=== PATIENT | female | born 2000 | race Caucasian/White ===

== ENCOUNTER 2021-06-26 06:04 | Inpatient (IN) | payer OTHER, SELFPAY ==
[2021-06-26] VITALS (113 sets, daily range): BP systolic 54–136; BP diastolic 22–88; PULSE 53–107; RESP 16; TEMP 36.2–37.1; O2SAT 93–100; BMI 45.1
--- NOTE | 2021-06-26 06:48 | LDADM ---
This patient, Karen Saravia, was admitted to Labor/Delivery/Recovery 107 on 06/26/21 at 06:04. Plans for labor, pain management and were discussed with patient. Patient/family oriented to hospital policies and general routines including ID bracelet, bed and alarms, visiting hours, pain management, procedures, bathroom and other care routines, personal items, smoking policy, room service/diet and guest tray routines, infant security routines, and visiting hours. Patient/Family are encouraged to report perceived risks to care and to ask questions if they do not understand what they are told or what they should do. See OBIX for further documentation.
[2021-06-26] MEDS: OXYTOCIN 30 UNITS/NS 500 ML 30 UNITS/500 ML BAG IV CONT (07:03)
[2021-06-26] MEDS: LACTATED RINGERS 1,000 ML 125 ML IV CONT ×3 (07:04→13:10)
[2021-06-26 07:18] LABS: Basophils Percent Auto 0.4 % (0.2-1.2); Eosinophils Absolute Auto 0.1 K/mm3 (0-0.3); Hemoglobin 12.3 g/dL (12.0-15.0); Immature Granulocyte Absolute 0.07 K/mm3 (0.00-0.031); Immature Granulocyte Percent A 0.7 % (0-0.5); Lymphocytes Absolute Auto 2.42 K/mm3 (0.9-3.2); Lymphocytes Percent Auto 23.6 % (18.3-44.2); Mean Corpuscular HGB Conc 34.2 g/dl (32-36); Mean Corpuscular Hemoglobin 29.7 pg (26-34); Mean Platelet Volume 11.2 fl (7.4-10.4); Monocytes Absolute Auto 0.8 K/mm3 (0.1-0.6); Monocytes Percent Auto 7.6 % (2.6-8.5); Neutrophils Absolute Auto 6.8 K/mm3 (1.3-6.7); Neutrophils Percent Auto 66.7 % (45.5-73.1); Platelet Count Result 281 k/mm3 (150-375); Red Blood Count 4.14 M/mm3 (4.2-5.4); Red Cell Distribution Width 12.5 % (11.5-14.5); White Blood Count 10.3 K/mm3 (4.5-10.0)
--- NOTE | 2021-06-26 07:51 | PM.IMHP ---
H&P: HPI History of Present Illness Date/Time: 06/26/21 07:51 Chief Complaint: induction of labor Narrative: Karen is a 21yo at 39.0 for eIOL. complicated by late care, obesity. Had IUGR last , this baby low normal growth. Review of Systems Review of Systems: All systems reviewed & are unremarkable except as noted in HPI and below PMFSH Social History Social History Smoking status: Never smoker Substance use: never Spiritual care concerns: No Meds Home Medications and Allergies Home Medications Medication Instructions Recorded Confirmed Type prenat.vits,imani,uuz-jveo-pecxn 1 tablet PO DAILY 06/26/21 06/26/21 History [ Vitamin] Allergies Allergy/AdvReac Type Severity Reaction Status Date / Time No Known Allergies Allergy Verified 06/26/21 06:30 Vital Signs Vital Signs - 24 hr 06/26/21 07:00 06/26/21 07:13 06/26/21 07:31 Temperature 97.7 F Pulse Rate 94 82 Blood Pressure 102/68 115/80 Exam Const: General: no acute distress Resp: Effort & Inspection: normal respiratory effort Auscultation: clear to auscultation bilaterally Cardio: Rate: regular rate Rhythm: regular rhythm GI: GI Palp: Yes Soft to palpation Extrem: General: normal to inspection H&P: Results Labs Labs: Short CBC 06/26/21 Range/Units 06:47 WBC 10.3 H (4.5-10.0) K/mm3 Hgb 12.3 (12.0-15.0) g/dL Hct 36.0 L (37.0-47.0) % Plt Count 281 (150-375) k/mm3 Assessment and Plan Additional Plan Here for induction of labor- pitocin AROM clear /-3 GBS neg FHT category 1
[2021-06-26] MEDS: fentaNYL CITRATE INJ (*CRX) 100 MCG/2 ML VIAL IV PUSH (09:57)
--- NOTE | 2021-06-26 09:58 | P.PNAN_ITS ---
Anes - Eval Pre Procedure Procedure: labor epidural Date/Time: 06/26/21 09:58 Surgeon: mateo Preop Diagnosis: pain during labor Pre Op Diagnosis: IOL Patient Data Age: 21 Gender: F Height: 1.57 m Weight: 112 kg Last Vital Signs Temp 37.1 C 06/26/21 08:39 Pulse 81 06/26/21 09:32 BP 115/78 06/26/21 09:32 Pulse Ox 98 06/26/21 09:55 Allergies Allergy/AdvReac Type Severity Reaction Status Date / Time No Known Allergies Allergy Verified 06/26/21 06:30 Home Medications Medication Instructions Recorded Confirmed Type prenat.vits,imani,vcr-stbg-ggkdu 1 tablet PO DAILY 06/26/21 06/26/21 History [ Vitamin] Laboratory Tests 06/26/21 06/26/21 06/26/21 06:47 06:47 06:47 WBC 10.3 K/mm3 H K/mm3 (4.5-10.0) RBC 4.14 M/mm3 L M/mm3 (4.2-5.4) Hgb 12.3 g/dL g/dL (12.0-15.0) Hct 36.0 % L % (37.0-47.0) MCV 87.0 fl fl (80-100) MCH 29.7 pg pg (26-34) MCHC 34.2 g/dl g/dl (32-36) RDW 12.5 % % (11.5-14.5) Plt Count 281 k/mm3 k/mm3 (150-375) MPV 11.2 fl H fl (7.4-10.4) Immature Gran % (Auto) 0.7 % H % (0-0.5) Neut % (Auto) 66.7 % % (45.5-73.1) Lymph % (Auto) 23.6 % % (18.3-44.2) [place] % (Auto) 7.6 % % (2.6-8.5) Eos % (Auto) 1.0 % % (0-4.4) Baso % (Auto) 0.4 % % (0.2-1.2) Lymph # (Auto) 2.42 K/mm3 K/mm3 (0.9-3.2) [place] # (Auto) 0.8 K/mm3 H K/mm3 (0.1-0.6) Eos # (Auto) 0.1 K/mm3 K/mm3 (0-0.3) Baso # (Auto) 0.0 K/mm3 K/mm3 (0.0-0.1) Abs Immat Gran (auto) 0.07 K/mm3 H K/mm3 (0.00-0.031) Absolute Neuts (auto) 6.8 K/mm3 H K/mm3 (1.3-6.7) Absolute Nucleated RBC 0.0 K/mm3 K/mm3 (0.0-0.012) Nucleated RBC % 0.0 % % (0.0-0.2) RPR Pending Blood Type O Positive Antibody Screen Negative Patient hx anesthesia problems: none Family hx anesthesia problems: none Results Review: All pre-operative results and documents have been reviewed as part of the pre-operative evaluation. [facility] Past Medical History Medical History (Updated 06/26/21 @ 09:59 by Roxanna Langford CRNA) Intrauterine Morbid obesity Social History Social History Smoking status: Never smoker Substance use: never Spiritual care concerns: No Exam Day of Procedure 06/26/21 09:58
--- NOTE | 2021-06-26 14:38 | P.PCNOB_ITS ---
OB - Delivery Note Procedure Delivery date: 06/26/21 Procedure: Induction method: AROM and per pitocin protocol Delivery monitor: external FHT and external uterine Route of delivery: Laceration Description: None Specimen: No Quantitative Blood Loss (ml): 150 Anesthesia type: Epidural Disposition: floor Narrative: With adequate expulsive efforts by the mother, the baby's head was delivered OA. The baby's anterior shoulder was delivered under the pubic symphysis without difficulty. The posterior shoulder and the rest of the baby delivered without difficulty. The infant was placed on the mothers chest and suctioned and stimulated. The cord was clamped and cut after 30 seconds. Mother and baby both stable. Short cord was noted. [place] Baby Date of : 06/26/21 Time of : 14:26 Weeks of gestation at delivery: 39 gender: Male Weight (pounds): 6 Weight (ounces): 5 presentation: vertex Placenta delivery description: Spontaneous score one minute: 9 score five minutes: 9
[2021-06-26] MEDS: OXYTOCIN 30 UNITS/NS 500 ML 30 UNITS/500 ML BAG 125 UNITS IV CONT (15:03)
[2021-06-26] MEDS: WITCH HAZEL 40 PADS 1 PAD TOPICAL (17:06)
--- NOTE | 2021-06-26 18:45 | OBPPTRN ---
1720-Patient transferred to post room #292 via wheelchair. Support person present. Oriented to unit, room, information board, rooming in, admission packet and security measures. Patient verbalizes understanding.
[2021-06-27 05:52] VITALS: BP 112/76; PULSE 74; RESP 16; TEMP 36.1; O2SAT 100
[2021-06-27 05:52] LABS: Hematocrit 36.3 % (37.0-47.0); Hemoglobin 12.1 g/dL (12.0-15.0)
--- NOTE | 2021-06-27 09:06 | PM.OBPNVD ---
OB - PN: Subj Subjective Date/time seen: 06/27/21 09:06 Patient comments: no complaints and pain well controlled baby status: doing well and bottle feeding well OB - PN: Obj Data Labs CBC & Chem 7: 06/27/21 04:57 Labs: Laboratory Results - last 24 hr 06/27/21 04:57 Hgb 12.1 Hct 36.3 L OB - PN A/P Assessment and Plan (1) , delivered: Code(s): O80 - Encounter for full-term uncomplicated delivery Status: Acute Plan day: 1 Plan: routine care and discharge home Time Spent With Patient Time: Total time spent is greater than 50% in coordination of care (as documented) at patient's floor/unit and/or counseling patient: Time with patient: less than 15 minutes Exam Narrative: NAD abdomen soft, nontender, fundus firm below the umbilicus Extremities nontender, 1+ edema
--- NOTE | 2021-06-27 09:08 | PM.OBDSVD ---
DS: Admitting Diagnosis Discharge Date 06/27/21 Admitting Diagnosis term IUP DS: Discharge Diagnosis Discharge Diagnosis (1) , delivered: Code(s): O80 - Encounter for full-term uncomplicated delivery Status: Acute OB - DS: Summary Hospital Course Hospital Course: Pt had an uncomplicated vaginal delivery and course. OB Procedures : Ultrasound OB Procedures Intrapartum: Spontaneous Vag Delivery OB Procedures: : None Peripartum Data Delivery Method: Natural Vaginal Status at Discharge Functional status at discharge: independent ambulation Time Spent with Patient Time attestation: Total time spent providing and/or coordinating discharge services: Exam Narrative: NAD abdomen soft, appropriately tender Ext non tender, 1+ edema DS: Data Data Completed and Pending Labs on day of discharge: Labs from last 24 hours 06/27/21 04:57 Hgb 12.1 Hct 36.3 L Discharge Plan Discharge Attending physician on discharge: Sobeida Wade Discharging Clinician: Sobeida Wade Anticipated Discharge Date/Time: 06/27/21 14:00 Patient Disposition: Home, Self-Care Activity: pelvic rest Diet: as tolerated Patient Instructions: Antibiotic Form Stand Alone Forms: General Discharge Information Follow-up/Referrals: Sobeida Wade MD [Physician] - 4 Weeks Discharge Medications: Continued Vitamin Tablet 1 tablet PO DAILY RF: 0 Date of admission: 06/26/21 06:04 Primary Care Provider: UNKNOWN,DOCTOR Admitting Provider: Sobeida Wade Attending physician on admission: Sobeida Wade Condition: Stable
[2021-06-27 09:30] VITALS: BP 116/63; PULSE 68; RESP 16; TEMP 36.3; O2SAT 99
[2021-06-27] MEDS: MULTIVIT/MIN/PREN/FOL AC/IRON TABLET 1 TAB PO (09:34)
[2021-06-27] MEDS: IBUPROFEN 600 MG TABLET PO (09:34)
[2021-06-27] MEDS: DOCUSATE SODIUM 100 MG CAPSULE PO (09:34)
[2021-06-27] MEDS: LANOLIN (LANSINOH) 7.5 GM CREAM 1 APPLIC TOPICAL (09:35)
--- NOTE | 2021-06-27 10:34 | WPDANLDPN2 ---
Anes-Prog Note L&D Date/Time: 06/27/21 10:34 Comfortable throughout: labor and delivery Neuraxial method: epidural Epidural/Spinal procedure site: clean & non-tender Neuro status: Neuro function grossly intact. Cardiovascular status: normal Respiratory status: normal Airway patency: baseline Mental status: baseline Post-Op hydration status: normal Vital Signs: Last Vital Signs Temp 36.3 C L 06/27/21 09:30 Pulse 68 06/27/21 09:30 Resp 16 06/27/21 09:30 BP 116/63 06/27/21 09:30 Pulse Ox 99 06/27/21 09:30 Pain score (VAS): 06/22 Post-procedural complaints: none Patient feedback: Patient satisfied with anesthetic care.
[2021-06-27 12:45] VITALS: BP 116/71; PULSE 73; RESP 16; TEMP 36.3; O2SAT 98
--- NOTE | 2021-06-27 18:20 | PC.NURSE ---
Patient was given the opportunity to view the discharge video Mother & Baby Care, The First Two Weeks and to ask questions. Patient declined viewing the video and has been given the mother/baby guide for home reference.
[2021-06-29 11:59] LABS: Rapid Plasma Reagin Non-Reactive (NonReactive)
== END 2021-06-27 17:20 | disposition home or self-care (01) | DRG 560 ==
LOC: ANHLDR 06:11 → ANHOB2 17:48
PROVIDERS: Admitting Provider Obstetrics & Gynecology; Visit Provider Obstetrics & Gynecology
DX: O76 Abnormality in fetal heart rate and rhythm complicating labor and delivery (principal); O99.214 Obesity complicating childbirth; E66.01 Morbid (severe) obesity due to excess calories; Z3A.39 39 weeks gestation of pregnancy; Z37.0 Single live birth
CPT/HCPCS: 36415; 85014; 85018; 85025; 86592; 86850; 86900; 86901; A9270; J2590; J2795; J3010; J7120